=== PATIENT | female | born 1980 | race Caucasian/White ===

== ENCOUNTER 2022-01-27 13:36 | Outpatient (CLI) | payer BC, SELFPAY ==
[2022-01-27 16:40] LABS: HIV 1/2/P24 Combo Screen* Negative (Negative)
[2022-01-27 17:37] LABS: Cholesterol* 230 mg/dL (90-199); HDL Cholesterol* 86 mg/dL (>=50); LDL Cholesterol Calculated 130 mg/dL (<100); Triglycerides* 68 mg/dL (40-149)
[2022-01-27 18:09] LABS: Hepatitis B Surface Antigen* Negative (Negative)
[2022-01-27 18:27] LABS: Hepatitis C Virus Antibody* Negative (Negative)
[2022-01-30 01:21] LABS: Rapid Plasma Reagin (RPR) Non Reactive (Non Reactive)
== END 2022-01-27 13:37 | disposition home or self-care (01) ==
PROVIDERS: Visit Provider Registered Nurse
DX: Z01.419 Encounter for gynecological examination (general) (routine) without abnormal findings (principal); R30.0 Dysuria; F41.9 Anxiety disorder, unspecified; Z11.3 Encounter for screening for infections with a predominantly sexual mode of transmission; Z11.4 Encounter for screening for human immunodeficiency virus [HIV]; Z13.6 Encounter for screening for cardiovascular disorders
CPT/HCPCS: 80061; 86592; 86703; 86803; 87086; 87340; 87491; 87591

== ENCOUNTER 2022-04-07 12:54 | Outpatient (CLI) | payer BC, SELFPAY ==
--- NOTE | 2022-04-07 13:00 | CRLHL7_ITS ---
For Patients: As a result of the Century Cures Act, medical imaging exams and procedure reports are released immediately into your electronic medical record. You may view this report before your referring provider. If you have questions, please contact your health care provider. BILATERAL SCREENING MAMMOGRAM WITH COMPUTER-AIDED DETECTION AND TOMOSYNTHESIS TECHNIQUE: CC and MLO views were obtained. These mammographic images have been obtained using full-field digital technique. These mammographic images were interpreted with the benefit of computer-aided detection. Breast Tomosynthesis was used in this interpretation. COMPARISON FILM: Baseline screening mammogram 41-year-old female. Implants. FINDINGS: There are scattered areas of fibroglandular density IMPRESSION: There is no radiographic evidence for malignancy. ASSESSMENT: BI-RADS Category 2: Benign RECOMMENDATION: Routine screening mammogram in 1 year. A lay language report of this examination will be provided to the patient. Mike Quezada M.D. Diagnostic Radiologist [email or web address] Transcribed: 3:25 pm DW/Dictated by: Mike Quezada MD @ 04/08/2022 8:15:00 AM (Electronically Signed)
== END 2022-04-07 12:55 | disposition home or self-care (01) ==
LOC: MAMMO 12:55
PROVIDERS: Visit Provider Registered Nurse
DX: Z12.31 Encounter for screening mammogram for malignant neoplasm of breast (principal)
CPT/HCPCS: 77063; 77067